=== PATIENT | male | born 1975 | race African-American/Black ===

== ENCOUNTER 2021-06-25 08:06 | Emergency (ER) | payer MEDICAID, OTHER ==
[~2021-06-25] VITALS: Ht 182.9 cm; Wt 115.0 kg
[2021-06-25] MEDS ORDERED: IBUPROFEN 400MG TABLET PO ONE (08:30)
[2021-06-25] MEDS ORDERED: HYDROCODONE/ACETAMINOPHEN 5/325MG TABLET PO ONE (08:30)
[2021-06-25] MEDS ORDERED: IBUP-2028 MT (09:27)
[2021-06-25 09:43] VITALS: BP 157/75
== END 2021-06-25 09:46 | disposition home or self-care (01) ==
LOC: ER 08:06
DX: S43.401A Unspecified sprain of right shoulder joint, initial encounter (principal); I10 Essential (primary) hypertension; Z88.6 Allergy status to analgesic agent; Z88.5 Allergy status to narcotic agent; Z90.49 Acquired absence of other specified parts of digestive tract; X50.0XXA Overexertion from strenuous movement or load, initial encounter; X50.9XXA Other and unspecified overexertion or strenuous movements or postures, initial encounter; Y93.89 Activity, other specified; Y92.89 Other specified places as the place of occurrence of the external cause; Y99.8 Other external cause status
CPT/HCPCS: 73030; 99283; A4565